=== PATIENT | male | born 1965 | race Caucasian/White ===

== ENCOUNTER 2020-10-28 14:35 | Emergency (ER) | payer SELFPAY ==
--- NOTE | 2020-10-28 15:42 | EDM.PDOCBH ---
ED HPI GENERAL MEDICAL PROBLEM - General Chief Complaint: Behavioral/Psych Stated Complaint: ALCOHOL DETOX Time Seen by Provider: 10/28/20 14:57 Source of Information: Reports: Patient, Family, RN Notes Reviewed History Limitations: Reports: No Limitations - History of Present Illness INITIAL COMMENTS - FREE TEXT/NARRATIVE: Patient is a 55-year-old male presenting to the emergency department with request of assistance to help stop drinking. He reports that he drinks a pint of vodka a day for the last year. He has drank heavily for much of his life, however 2 years ago he got a DUI and was required to wear an alcohol bracelet. He was able to detox himself at home and remained sober for 1 year. States he has been drinking heavily for about the last year. He had a fall at home 1 week ago causing bruising to his left eye as well as a scabbed laceration. He denies any history of seizures with alcohol withdrawal. Initially he had said he does have seizures, after further questioning, he has no documented seizure history. He states that he "blacks out "sometimes but he is unsure if this is related to his alcohol use. He denies any dizziness, nausea, vomiting, diarrhea, fever, or chills. Denies any recreational drug use. Patient states that he decided today that he wanted to stop drinking so he called his brother who brought him to the ER. - Related Data Allergies Allergy/AdvReac Type Severity Reaction Status Date / Time No Known Allergies Allergy Verified 10/28/20 14:48 Home Meds: Home Meds LORazepam [Ativan] 1 mg PO ASDIRECTED 10/28/20 [History] Magnesium Chloride [Slow-Mag] 2 tab PO DAILY 5 Days #10 tablet.dr 10/28/20 [Rx] Ondansetron [Zofran ODT] 4 mg PO Q8H 10/28/20 [History] Potassium Chloride 20 meq PO DAILY 5 Days #5 tablet.er 10/28/20 [Rx] Past Medical History - Past Health History Medical/Surgical History: Denies Medical/Surgical History Psychiatric History: Reports: Addiction - Infectious Disease History Other Infectious Disease History: thinks he had covid in fall 2019, but was never tested Social & Family History - Tobacco Use Tobacco Use Status *Q: Current Every Day Tobacco User Years of Tobacco use: 30 Packs/Tins Daily: 1 - Alcohol Use Days Per Week of Alcohol Use: 7 Number of Drinks Per Day: 14 Total Drinks Per Week: 98 Date of Last Drink: 10/28/20 Time of Last Drink: 12:00 - Recreational Drug Use Recreational Drug Use: No ED ROS GENERAL - Review of Systems Review Of Systems: See Below Constitutional: Reports: No Symptoms. Denies: Fever, Chills HEENT: Reports: No Symptoms Respiratory: Reports: No Symptoms. Denies: Shortness of Breath, Cough Cardiovascular: Reports: No Symptoms. Denies: Chest Pain Endocrine: Reports: No Symptoms GI/Abdominal: Reports: No Symptoms. Denies: Abdominal Pain, Diarrhea, Hematemesis, Hematochezia, Nausea, Vomiting : Reports: No Symptoms Musculoskeletal: Reports: No Symptoms Skin: Reports: No Symptoms Neurological: Reports: No Symptoms. Denies: Dizziness, Tremors Psychiatric: Reports: No Symptoms Hematologic/Lymphatic: Reports: No Symptoms Immunologic: Reports: No Symptoms ED EXAM, BEHAVIORAL HEALTH - Physical Exam Exam: See Below Exam Limited By: No Limitations General Appearance: Alert, WD/WN, No Apparent Distress, Other (Unkept, poor hygiene) Eye Exam: Left Eye: Other (ecchymosis to the left eye scabbed laceration to left brow. No redness, warmth, or swelling.), Bilateral Eye: Normal Inspection, PERRL Head: Atraumatic, Normocephalic Respiratory/Chest: No Respiratory Distress, Lungs Clear, Normal Breath Sounds, No Accessory Muscle Use, Chest Non-Tender Cardiovascular: Normal Peripheral Pulses, Regular Rate, Rhythm, No Edema, No Gallop, No JVD, No Murmur, No Rub GI/Abdominal: Normal Bowel Sounds, Soft, Non-Tender, No Organomegaly, No Distention, No Abnormal Bruit, No Mass Extremities: Normal Inspection, Normal Range of Motion, Non-Tender, Normal Capillary Refill, No Pedal Edema Neurological: Alert, Normal Mood/Affect, CN II-XII Intact, Normal Cognition, Normal Gait, Normal Reflexes, No Motor/Sensory Deficits, Oriented x 3 Psychiatric: Alert, Normal Affect, Normal Cognition, Normal Mood, Oriented #1 Interpretation EKG Date: 10/28/20 Time: 15:07 Rhythm: NSR Rate (Beats/Min): 98 [place]: Normal P-Wave: Present QRS: Normal ST-T: Normal QT: Normal Comparison: NA - No Prior EKG COURSE, BEHAVIORAL HEALTH COMP - Course Vital Signs: Last Vital Signs Temp 98.1 F 10/28/20 14:46 Pulse 99 10/28/20 14:46 Resp 18 10/28/20 14:46 BP 141/95 H 10/28/20 14:46 Pulse Ox 95 10/28/20 14:46 Orders, Labs, Meds: Laboratory Tests 10/28/20 10/28/20 10/28/20 Range/Units 15:12 15:12 15:12 WBC 6.23 (4.23-9.07) K/mm3 RBC 3.22 L (4.63-6.08) M/mm3 Hgb 12.1 L (13.7-17.5) gm/dl Hct 35.7 L (40.1-51.0) % MCV 110.9 H (79.0-92.2) fl MCH 37.6 H (25.7-32.2) pg MCHC 33.9 (32.2-35.5) g/dl RDW Std Deviation 55.8 H (35.1-43.9) fL Plt Count 57 L (163-337) K/mm3 MPV 11.7 (9.4-12.3) fl Neutrophils % (Manual) 56 (40-60) % Band Neutrophils % 0 (0-10) % Lymphocytes % (Manual) 34 (20-40) % Atypical Lymphs % 0 % Monocytes % (Manual) 7 (2-10) % Eosinophils % (Manual) 3 (0.8-7.0) % Basophils % (Manual) 0 L (0.2-1.2) Platelet Estimate Decreased Anisocytosis 2+ moderate Macrocytosis 2+ moderate RBC Morph Comment Not Reportable Sodium 138 (136-145) mEq/L Potassium 2.7 L (3.5-5.1) mEq/L Chloride 93 L (98-107) mEq/L Carbon Dioxide 29 (21-32) mEq/L Anion Gap 18.7 H (5-15) BUN 21 H (7-18) mg/dL Creatinine 1.2 (0.7-1.3) mg/dL Est Cr Clr Drug Dosing 67.54 mL/min Estimated GFR (MDRD) > 60 (>60) mL/min BUN/Creatinine Ratio 17.5 (14-18) Glucose 93 (74-106) mg/dL Calcium 9.0 (8.5-10.1) mg/dL Magnesium (1.8-2.4) mg/dl Total Bilirubin 3.0 H (0.2-1.0) mg/dL AST 267 H (15-37) U/L ALT 56 (16-63) U/L Alkaline Phosphatase 136 H (46-116) U/L Total Protein 7.5 (6.4-8.2) g/dl Albumin 3.2 L (3.4-5.0) g/dl Globulin 4.3 gm/dL Albumin/Globulin Ratio 0.7 L (1-2) TSH 3rd Generation 2.536 (0.358-3.74) uIU/mL Salicylates 0.0 L (2.8-20) mg/dL Urine Opiates Screen (LXMCGX=656) Ur Buprenorphine Scrn (CUTOFF=10) Ur Oxycodone Screen (ADQ1ZH=199) Urine Methadone Screen (VUD7JI=307) Ur Propoxyphene Screen (KFNKDH=750) Acetaminophen 0 L (10-30) ug/mL Ur Barbiturates Screen (DDIMZP=785) Ur Tricyclics Screen (HCJQFH=756) Ur Phencyclidine Scrn (CUTOFF=25) Ur Amphetamine Screen (JFPLMI=364) U Methamphetamines Scrn (KFDIGQ=985) U Benzodiazepines Scrn (THFAMH=939) U Cocaine Metab Screen (AJJOCW=745) U Marijuana (THC) Screen (CUTOFF=50) Ethyl Alcohol 0.16 (0.00) gm% 10/28/20 10/28/20 Range/Units 15:12 16:17 WBC (4.23-9.07) K/mm3 RBC (4.63-6.08) M/mm3 Hgb (13.7-17.5) gm/dl Hct (40.1-51.0) % MCV (79.0-92.2) fl MCH (25.7-32.2) pg MCHC (32.2-35.5) g/dl RDW Std Deviation (35.1-43.9) fL Plt Count (163-337) K/mm3 MPV (9.4-12.3) fl Neutrophils % (Manual) (40-60) % Band Neutrophils % (0-10) % Lymphocytes % (Manual) (20-40) % Atypical Lymphs % % Monocytes % (Manual) (2-10) % Eosinophils % (Manual) (0.8-7.0) % Basophils % (Manual) (0.2-1.2) Platelet Estimate Anisocytosis Macrocytosis RBC Morph Comment Sodium (136-145) mEq/L Potassium (3.5-5.1) mEq/L Chloride (98-107) mEq/L Carbon Dioxide (21-32) mEq/L Anion Gap (5-15) BUN (7-18) mg/dL Creatinine (0.7-1.3) mg/dL Est Cr Clr Drug Dosing mL/min Estimated GFR (MDRD) (>60) mL/min BUN/Creatinine Ratio (14-18) Glucose (74-106) mg/dL Calcium (8.5-10.1) mg/dL Magnesium 0.9 L (1.8-2.4) mg/dl Total Bilirubin (0.2-1.0) mg/dL AST (15-37) U/L ALT (16-63) U/L Alkaline Phosphatase (46-116) U/L Total Protein (6.4-8.2) g/dl Albumin (3.4-5.0) g/dl Globulin gm/dL Albumin/Globulin Ratio (1-2) TSH 3rd Generation (0.358-3.74) uIU/mL Salicylates (2.8-20) mg/dL Urine Opiates Screen Negative (BHFSVM=962) Ur Buprenorphine Scrn Negative (CUTOFF=10) Ur Oxycodone Screen Negative (JJS9FV=210) Urine Methadone Screen Negative (CTU6MA=671) Ur Propoxyphene Screen Negative (ASZPDM=022) Acetaminophen (10-30) ug/mL Ur Barbiturates Screen Negative (YBCYEL=908) Ur Tricyclics Screen Negative (ICMOMG=916) Ur Phencyclidine Scrn Negative (CUTOFF=25) Ur Amphetamine Screen Negative (DQYDQQ=423) U Methamphetamines Scrn Negative (FCRQEE=505) U Benzodiazepines Scrn Negative (PNNLBE=300) U Cocaine Metab Screen Negative (MPZZQS=722) U Marijuana (THC) Screen Negative (CUTOFF=50) Ethyl Alcohol (0.00) gm% Medications Discontinued Medications Generic Name Dose Route Start Last Admin Trade Name Freq PRN Reason Stop Dose Admin Magnesium Sulfate 4 gm/ Premix 50 mls @ 12.5 mls/hr 10/28/20 16:22 10/28/20 17:07 IV 10/28/20 20:21 12.5 mls/hr ONETIME ONE Administration Potassium Chloride 10 meq/ 100 mls @ 100 mls/hr 10/28/20 16:30 10/28/20 20:08 Premix IV 10/28/20 19:29 100 mls/hr Q1H POLINA Administration Potassium Chloride 40 meq 10/28/20 16:06 Potassium Chloride 20 Meq Tab.Er PO 10/28/20 16:07 ONETIME ONE Medical Clearance: Patient is a 55-year-old male presenting to the emergency department with request of obtaining help to stop drinking. He reports drinking a pint of vodka daily over the course of last year. Prior to this, he was sober for 1 year and was able to stop drinking on his own due to a DUI and required ankle bracelet. He denies any history of seizures with alcohol withdrawal. He does not show any signs of alcohol withdrawal at this time. He does appear unkept and somewhat dirty. He has ecchymosis to his left eye as well as a scabbed laceration to his left brow. He states he fell 1 week ago. He is unsure if he was drinking at the time. They initially had questions about going to treatment in [facility]; however, they have not been in contact with that facility. Discussed with him the option of the [facility] residential crisis center and they are open to this. I have ordered blood work, urinalysis, EKG. 10/28/20 1625 Hematology was significant for hemoglobin slightly low at 12.1, potassium 2.7, chloride 93, anion gap 18.7, BUN 21, magnesium low at 0.9, total bili 3.0, AST 267. Urine drug screen was negative. Blood alcohol elevated 0.16. I have ordered 40 mEq of oral potassium, KCl 10 mEq IV x3 doses, and magnesium 4 g IV. [facility] will come to evaluate the patient. 10/28/20 17:38 [facility] was here to evaluate the patient. They have accepted him for admission to the residential crisis center. Once his magnesium and potassium are complete, he will be discharged there for rehab. I will plan to discharge him with tapering Ativan and Zofran to help him through the detox. These prescriptions will be provided through [facility]. I will also send prescriptions for potassium and magnesium to [facility]. Departure - Departure Time of Disposition: 20:13 Disposition: DC/Tfer to Other 70 Condition: Good Clinical Impression: Alcohol use disorder, Hypomagnesemia, Hypokalemia Alcohol intoxication Qualifiers: Complication of substance-induced condition: uncomplicated Qualified Code(s): F10.920 - Alcohol use, unspecified with intoxication, uncomplicated - Discharge Information *PRESCRIPTION DRUG MONITORING PROGRAM REVIEWED*: Yes *COPY OF PRESCRIPTION DRUG MONITORING REPORT IN PATIENT SANDRITA: No Prescriptions: Potassium Chloride 20 meq PO DAILY 5 Days #5 tablet.er Magnesium Chloride [Slow-Mag] 2 tab PO DAILY 5 Days #10 tablet.dr Instructions: Hypomagnesemia, Hypokalemia, Alcohol Intoxication, [id number] Referrals: PCP,None [Primary Care Provider] - Forms: ED Department Discharge Additional Instructions: You were seen in the emergency department today with request of assistance to stop drinking. Blood work was completed. A blood alcohol was found to be elevated 0.16. Potassium and magnesium are also low. You received potassium and magnesium replacement the ER. A prescription for potassium and magnesium has also been sent to [facility]. Take these medications as prescribed starting tomorrow. You have been provided prescription for Ativan and Zofran. Take the Ativan (1mg) 1 tablet 3 times daily for 3 days, 1 tablet twice daily for 3 days, 1 tablet once daily for 3 days. The Zofran should be 1 tab (4mg) every 8 hours for 3 days. Abstain from alcohol consumption and follow the treatment plan as set in place by [facility]. Return to ER as needed. Sepsis Event Note (ED) - Evaluation Sepsis Screening Result: No Definite Risk - Focused Exam Vital Signs: Vital Signs Temp Pulse Resp BP Pulse Ox 10/28/20 14:46 98.1 F 99 18 141/95 H 95
[2020-10-28 16:04] LABS: ACETAMINOPHEN 0 ug/mL (10-30)
[2020-10-28] MEDS ORDERED: Potassium Chloride 20 MEQ Tab.ER PO ONE (16:06)
[2020-10-28] MEDS ORDERED: Magnesium Sulfate/Water 4 GM in Premix Bag 1 BAG IV ONE (16:22)
[2020-10-28] MEDS: Potassium Chloride 10 MEQ in Premix Bag 1 BAG IV SCH ×3 (17:06→20:08)
== END 2020-10-28 21:18 | disposition other institution (70) ==
LOC: JD.ED 14:35
DX: F10.120 Alcohol abuse with intoxication, uncomplicated (principal); E83.42 Hypomagnesemia; E87.6 Hypokalemia; F17.210 Nicotine dependence, cigarettes, uncomplicated; Z79.899 Other long term (current) drug therapy
CPT/HCPCS: 36415; 80053; 80143; 80179; 80306; 80307; 83735; 84443; 85007; 85027; 93005; 96365; 96366; 96367; 96368; 99284; J3475; J3480; 93010

== ENCOUNTER 2020-10-29 17:52 | Emergency (ER) | payer SELFPAY ==
[2020-10-29] MEDS ORDERED: Ondansetron 4 MG/2 ML SDV IVPUSH ONE (18:02)
[2020-10-29] MEDS ORDERED: Sodium Chloride 0.9% 10 ML Syringe FLUSH PRN (18:02)
[2020-10-29] MEDS ORDERED: Thiamine 200 MG/2 ML MDV IVPUSH ONE (18:03)
[2020-10-29] MEDS ORDERED: LORazepam 2 MG/ML SDV IVPUSH ONE ×2 (18:04→20:54)
[2020-10-29] MEDS ORDERED: Lactated Ringers 1,000 ML IV SCH ×2 (18:15→19:15)
--- NOTE | 2020-10-29 18:21 | EDM.PDOCBH ---
ED HPI GENERAL MEDICAL PROBLEM - General Chief Complaint: Drug or Alcohol Abuse Stated Complaint: [facility] Time Seen by Provider: 10/29/20 17:58 Source of Information: Reports: Patient, Provider History Limitations: Reports: No Limitations - History of Present Illness INITIAL COMMENTS - FREE TEXT/NARRATIVE: The patient presents by [facility] from the [facility] for alcohol withdrawal. The patient was here yesterday for alcohol intoxication. He was looking for help to stop drinking. He drinks heavily. He drinks a liter of vodka daily. His blood alcohol was 0.16 yesterday. He went to the [facility] and he has been shaking, nauseated, generalized weakness and incontinent of stool and urine. He went with ativan and zofran. He was sent back for reevaluation and possible admission. He denies a headache, fever, chills, cough, congestion, runny nose, chest pain, or shortness of breath. Onset: Gradual Duration: Day(s): Severity: Moderate Improves with: Reports: None Worsens with: Reports: None Associated Symptoms: Reports: Nausea/Vomiting. Denies: Chest Pain, Cough, Fever/Chills, Headaches, Shortness of Breath - Related Data Allergies Allergy/AdvReac Type Severity Reaction Status Date / Time No Known Allergies Allergy Verified 10/29/20 17:56 Home Meds: Home Meds LORazepam [Ativan] 1 mg PO ASDIRECTED 10/28/20 [History] Magnesium Chloride [Slow-Mag] 2 tab PO DAILY 5 Days #10 tablet. 10/28/20 [Rx] Ondansetron [Zofran ODT] 4 mg PO Q8H 10/28/20 [History] Potassium Chloride 20 meq PO DAILY 5 Days #5 tablet.er 10/28/20 [Rx] Past Medical History - Past Health History Medical/Surgical History: Denies Medical/Surgical History Psychiatric History: Reports: Addiction - Infectious Disease History Other Infectious Disease History: thinks he had covid in fall 2019, but was never tested - Past Surgical History GI Surgical History: Reports: Appendectomy Social & Family History - Caffeine Use Caffeine Use: Reports: Coffee - Alcohol Use Days Per Week of Alcohol Use: 7 Number of Drinks Per Day: 7 Total Drinks Per Week: 49 Date of Last Drink: 10/28/20 Time of Last Drink: 09:00 - Recreational Drug Use Recreational Drug Use: No ED ROS GENERAL - Review of Systems Review Of Systems: See Below Constitutional: Reports: Malaise, Weakness, Fatigue. Denies: Fever, Chills HEENT: Reports: No Symptoms Respiratory: Reports: No Symptoms Cardiovascular: Reports: No Symptoms Endocrine: Reports: No Symptoms GI/Abdominal: Reports: Nausea. Denies: Abdominal Pain, Vomiting : Reports: No Symptoms Musculoskeletal: Reports: No Symptoms Skin: Reports: No Symptoms ED EXAM, BEHAVIORAL HEALTH - Physical Exam Exam: See Below Exam Limited By: No Limitations General Appearance: Alert, No Apparent Distress Ears: Normal External Exam Nose: Normal Inspection Head: Atraumatic, Normocephalic Neck: Normal Inspection Respiratory/Chest: No Respiratory Distress, Lungs Clear, Normal Breath Sounds Cardiovascular: Regular Rate, Rhythm, No Edema, No Murmur GI/Abdominal: Soft, Non-Tender, No Organomegaly, No Mass Back Exam: Normal Inspection Extremities: Normal Inspection Neurological: Alert, No Motor/Sensory Deficits, Oriented x 3, Other (Shaking) COURSE, BEHAVIORAL HEALTH COMP - Course Vital Signs: Last Vital Signs Temp 97.4 F 10/29/20 17:58 Pulse 101 H 10/29/20 17:58 Resp 16 10/29/20 17:58 BP 132/85 10/29/20 17:58 Pulse Ox 96 10/29/20 17:58 Orders, Labs, Meds: Active Orders 24 hr Category Date Time Status EKG Documentation Completion [RC] ASDIRECTED Care 10/29/20 19:14 Active Peripheral IV Care [RC] . DIRECTED Care 10/29/20 18:02 Active CORONAVIRUS COVID-19 LILLY [MOLEC] Stat Lab 10/29/20 18:45 Received ETOH [ETHANOL BLOOD MEDICAL] [CHEM] Stat Lab 10/29/20 18:12 Received INR,PT,PROTHROMBIN TIME [COAG] Stat Lab 10/29/20 19:15 Ordered Lactated Ringers [Ringers, Lactated] 1,000 ml Med 10/29/20 18:15 Active IV ASDIRECTED Lactated Ringers [Ringers, Lactated] 1,000 ml Med 10/29/20 19:15 Active IV ASDIRECTED Magnesium Sulfate/Water [Magnesium Sulfate in Water 4 Med 10/29/20 19:08 Active GM/50 ML] 4 gm Premix Bag 1 bag IV ONETIME Sodium Chloride 0.9% [Saline Flush] Med 10/29/20 18:02 Active 10 ml FLUSH ASDIRECTED PRN ED Antiemetic Medication Reflex [OM.PC] Stat Oth 10/29/20 18:03 Ordered Peripheral IV Insertion Adult [OM.PC] Stat Oth 10/29/20 18:02 Ordered EKG 12 Lead [EK] Stat Ther 10/29/20 19:14 Ordered Medication Orders Lactated Ringer's (Ringers, Lactated) 1,000 mls @ 1,000 mls/hr IV ASDIRECTED POLINA Last Admin: 10/29/20 18:13 Dose: 1,000 mls/hr Documented by: JOSEPH Magnesium Sulfate 4 gm/ Premix 50 mls @ 12.5 mls/hr IV ONETIME ONE Stop: 10/29/20 23:07 Lactated Ringer's (Ringers, Lactated) 1,000 mls @ 125 mls/hr IV ASDIRECTED [facility] Sodium Chloride (Sodium Chloride 0.9% 10 Ml Syringe) 10 ml FLUSH ASDIRECTED PRN PRN Reason: Keep Vein Open Last Admin: 10/29/20 18:15 Dose: 10 ml Documented by: JOSEPH Laboratory Tests 10/29/20 10/29/20 Range/Units 18:12 18:12 WBC 6.64 (4.23-9.07) K/mm3 RBC 3.13 L (4.63-6.08) M/mm3 Hgb 12.0 L (13.7-17.5) gm/dl Hct 35.4 L (40.1-51.0) % MCV 113.1 H (79.0-92.2) fl MCH 38.3 H (25.7-32.2) pg MCHC 33.9 (32.2-35.5) g/dl RDW Std Deviation 56.0 H (35.1-43.9) fL Plt Count 54 L (163-337) K/mm3 MPV 11.8 (9.4-12.3) fl Neut % (Auto) 65.8 (34.0-67.9) % Lymph % (Auto) 19.9 L (21.8-53.1) % [place] % (Auto) 12.3 H (5.3-12.2) % Eos % (Auto) 1.5 (0.8-7.0) Baso % (Auto) 0.2 (0.1-1.2) % Neut # (Auto) 4.37 (1.78-5.38) K/mm3 Lymph # (Auto) 1.32 (1.32-3.57) K/mm3 [place] # (Auto) 0.82 (0.30-0.82) K/mm3 Eos # (Auto) 0.10 (0.04-0.54) K/mm3 Baso # (Auto) 0.01 (0.01-0.08) K/mm3 Manual Slide Review Abnormal smear Sodium 135 L (136-145) mEq/L Potassium 3.3 L (3.5-5.1) mEq/L Chloride 92 L (98-107) mEq/L Carbon Dioxide 33 H (21-32) mEq/L Anion Gap 13.3 (5-15) BUN 26 H (7-18) mg/dL Creatinine 1.6 H (0.7-1.3) mg/dL Est Cr Clr Drug Dosing 44.12 mL/min Estimated GFR (MDRD) 45 (>60) mL/min BUN/Creatinine Ratio 16.3 (14-18) Glucose 93 (74-106) mg/dL Calcium 9.3 (8.5-10.1) mg/dL Phosphorus 2.6 (2.6-4.7) mg/dL Magnesium 1.5 L (1.8-2.4) mg/dl Total Bilirubin 3.3 H (0.2-1.0) mg/dL AST 197 H (15-37) U/L ALT 50 (16-63) U/L Alkaline Phosphatase 137 H (46-116) U/L Total Protein 7.3 (6.4-8.2) g/dl Albumin 3.1 L (3.4-5.0) g/dl Globulin 4.2 gm/dL Albumin/Globulin Ratio 0.7 L (1-2) Medications Generic Name Dose Route Start Last Admin Trade Name Freq PRN Reason Stop Dose Admin Lactated Ringer's 1,000 mls @ 1,000 mls/hr 10/29/20 18:15 10/29/20 18:13 Ringers, Lactated IV 1,000 mls/hr ASDIRECTED POLINA Administration Magnesium Sulfate 4 gm/ Premix 50 mls @ 12.5 mls/hr 10/29/20 19:08 IV 10/29/20 23:07 ONETIME ONE Lactated Ringer's 1,000 mls @ 125 mls/hr 10/29/20 19:15 Ringers, Lactated IV ASDIRECTED POLINA Sodium Chloride 10 ml 10/29/20 18:02 10/29/20 18:15 Sodium Chloride 0.9% 10 Ml Syringe FLUSH 10 ml ASDIRECTED PRN Administration Keep Vein Open Discontinued Medications Generic Name Dose Route Start Last Admin Trade Name Calvinq PRN Reason Stop Dose Admin Lorazepam 1 mg 10/29/20 18:04 10/29/20 18:16 Lorazepam 2 Mg/Ml Sdv IVPUSH 10/29/20 18:05 1 mg ONETIME ONE Administration Ondansetron HCl 4 mg 10/29/20 18:02 10/29/20 18:13 Ondansetron 4 Mg/2 Ml Sdv IVPUSH 10/29/20 18:03 4 mg ONETIME ONE Administration Thiamine HCl 100 mg 10/29/20 18:03 10/29/20 18:14 Thiamine 200 Mg/2 Ml Mdv IVPUSH 10/29/20 18:04 100 mg ONETIME ONE Administration Re-Assessment/Re-Exam: I ordered an IV NS 1L bolus, ativan 1mg IV, zofran 4mg IV, thiamine 100mg IV, and labs. His Hgb was low at 12. His Na was 135. His K was low at 3.3. His creatinine was elevated at 1.6. His magnesium was low at 1.5. His AST is elevated at 197. His alk phos was elevated at 137. I feel he needs to be admitted for alcohol detox. I will start some magnesium. I called Dr Barney and he agreed to the admission. Departure - Departure Time of Disposition: 19:20 Disposition: Admitted As Inpatient 66 Condition: Fair Clinical Impression: Hypomagnesemia, Hypokalemia Alcohol withdrawal Qualifiers: Complication of substance-induced condition: uncomplicated Qualified Code(s): F10.230 - Alcohol dependence with withdrawal, uncomplicated - Discharge Information Referrals: PCP,None [Primary Care Provider] - Forms: ED Department Discharge Sepsis Event Note (ED) - Evaluation Sepsis Screening Result: No Definite Risk - Focused Exam Vital Signs: Vital Signs Temp Pulse Resp BP Pulse Ox 10/29/20 17:58 97.4 F 101 H 16 132/85 96 - My Orders Last 24 Hours: My Active Orders 10/29/20 18:02 Peripheral IV Care [RC] . DIRECTED Sodium Chloride 0.9% [Saline Flush] 10 ml FLUSH ASDIRECTED PRN Peripheral IV Insertion Adult [OM.PC] Stat 10/29/20 18:03 ED Antiemetic Medication Reflex [OM.PC] Stat 10/29/20 18:12 ETOH [ETHANOL BLOOD MEDICAL] [CHEM] Stat 10/29/20 18:15 Lactated Ringers [Ringers, Lactated] 1,000 ml IV ASDIRECTED 10/29/20 18:45 CORONAVIRUS COVID-19 LILLY [MOLEC] Stat 10/29/20 19:08 Magnesium Sulfate/Water [Magnesium Sulfate in Water 4 GM/50 ML] 4 gm Premix Bag 1 bag IV ONETIME 10/29/20 19:14 EKG Documentation Completion [RC] ASDIRECTED EKG 12 Lead [EK] Stat 10/29/20 19:15 INR,PT,PROTHROMBIN TIME [COAG] Stat Lactated Ringers [Ringers, Lactated] 1,000 ml IV ASDIRECTED - Assessment/Plan Last 24 Hours: My Active Orders 10/29/20 18:02 Peripheral IV Care [RC] . DIRECTED Sodium Chloride 0.9% [Saline Flush] 10 ml FLUSH ASDIRECTED PRN Peripheral IV Insertion Adult [OM.PC] Stat 10/29/20 18:03 ED Antiemetic Medication Reflex [OM.PC] Stat 10/29/20 18:12 ETOH [ETHANOL BLOOD MEDICAL] [CHEM] Stat 10/29/20 18:15 Lactated Ringers [Ringers, Lactated] 1,000 ml IV ASDIRECTED 10/29/20 18:45 CORONAVIRUS COVID-19 LILLY [MOLEC] Stat 10/29/20 19:08 Magnesium Sulfate/Water [Magnesium Sulfate in Water 4 GM/50 ML] 4 gm Premix Bag 1 bag IV ONETIME 10/29/20 19:14 EKG Documentation Completion [RC] ASDIRECTED EKG 12 Lead [EK] Stat 10/29/20 19:15 INR,PT,PROTHROMBIN TIME [COAG] Stat Lactated Ringers [Ringers, Lactated] 1,000 ml IV ASDIRECTED
[2020-10-29] MEDS ORDERED: Magnesium Sulfate/Water 4 GM in Premix Bag 1 BAG IV ONE (19:08)
[2020-10-29] MEDS ORDERED: Ondansetron 4 MG/2 ML SDV IV PRN (20:04)
[2020-10-29] MEDS ORDERED: HYDROmorphone 0.5 MG/0.5 ML Syringe IVPUSH PRN (20:04)
[2020-10-29] MEDS ORDERED: Albuterol/Ipratropium 3.0-0.5 MG/3 ML Neb Soln NEB PRN (20:04)
[2020-10-29] MEDS ORDERED: hydrALAZINE 20 MG/ML SDV IVPUSH PRN (20:14)
--- NOTE | 2020-10-29 20:38 | PCM.SN.2 ---
- Free Text/Narrative Note: I was called by ER Dr. Craven to admit the pt. Pt is a heavy alcohol user and developed alcohol withdrawal and early DT. I ordered an ICU admission. I was called again by Dr. Craven when I entering other orders that pt developed frequent non-sustained V tachy in the ER. Discussed with Dr. Craven, who will transfer the pt to higher level hospital directly from ER for further workup and treatment. Informed ICU that the ICU admission has been canceled. I am just about to see the pt and has not see him yet.
[2020-10-29] MEDS ORDERED: LORazepam 2 MG/ML SDV ONE (20:53)
[2020-10-29] MEDS ORDERED: Heparin Sodium 5,000 Units/ML Vial SUBCUT SCH (22:00)
--- NOTE | 2020-10-30 09:00 | CR ---
Chest: Portable view of the chest was obtained. Comparison: No previous study. Heart size and mediastinum are normal. Lungs are clear with no acute parenchymal change. Several old healed bilateral rib fractures are noted. No acute osseous finding is seen. Impression: 1. Nothing acute is seen on portable chest x-ray. Diagnostic code #2
== END 2020-10-29 20:44 ==
LOC: JD.ED 17:52 → JD.ICU 19:42 → UNDOADMIN 19:42 → JD.ED 20:44 → UNDODISIN 20:44
DX: F10.230 Alcohol dependence with withdrawal, uncomplicated (principal); I47.2 Ventricular tachycardia; Z20.822 Contact with and (suspected) exposure to COVID-19; Z79.899 Other long term (current) drug therapy; Z90.49 Acquired absence of other specified parts of digestive tract
CPT/HCPCS: 36415; 71045; 80053; 80307; 83735; 84100; 85025; 85610; 87635; 93005; 96365; 96366; 96375; 96376; 99285; J2060; J2405; J3411; J3475; J7120; U0002